=== PATIENT | male | born 1960 | race Caucasian/White ===

== ENCOUNTER 2021-02-01 20:46 | Inpatient (IN) | payer OTHER, SELFPAY ==
[2021-02-01] VITALS (8 sets, daily range): BP systolic 109–159; BP diastolic 59–117; PULSE 80–108; RESP 18–26; TEMP 36.6–39.3; O2SAT 88–98; BMI 32.3; BMI 32.5
--- NOTE | 2021-02-01 21:08 | EKG12_ITS ---
Test Reason : WEAKNESS Blood Pressure : / mmHG Vent. Rate : 098 BPM Atrial Rate : 098 BPM P-R Int : 130 ms QRS Dur : 084 ms QT Int : 378 ms P-R-T Axes : 051 034 046 degrees QTc Int : 482 ms Normal sinus rhythm Biatrial enlargement Low voltage QRS Prolonged QT Abnormal ECG Confirmed by SAURAV PEREZ, PETE ([id number]), editor at large LEATHA DESAI ([id number]) on 02/03/2021 10:13:13 AM Referred By: AURE Confirmed By:PETE MG MD
[2021-02-01 21:34] LABS: Absolute Neutrophil Count 5.1 X10^3/uL (2.0-7.7); Basophil# 0.03 X10^3/uL; Basophil% 0.5 % (0-1); Hematocrit 54.4 % (40-54); Hemoglobin 17.7 g/dL (13.0-16.5); Lymphocyte % 11.1 % (19-41); Mean Corp Hgb Conc 32.5 g/dL (32-36); Mean Corpuscular Hgb 28.7 pg (27.0-32.0); Mean Corpuscular Volume 88.2 fL (80-94); Mean Platelet Vol. 10.9 fl (6.2-12.0); Monocyte% 7.9 % (0-10); NRBC Flagged by Analyzer 0 % (0-5); Neutrophil # 5.06 X10^3/uL (2.7-7.7); Neutrophil % 80.2 % (47-70); Platelet Count 210 K/mm3 (150-450); RBC Distribution Width CV 13.4 % (11.6-14.6); RBC Distribution Width SD 43.5 fl (35.1-43.9); Red Blood Count 6.17 M/mm3 (4.6-6.2); White Blood Count 6.3 K/mm3 (4.4-11.0)
--- NOTE | 2021-02-01 21:43 | RAD_ITS ---
INDICATION: sob EXAMINATION/TECHNIQUE: X-RAY - XR Chest 1 View COMPARISON: 07/08/2013. FINDINGS: The lungs are clear. The cardiomediastinal silhouette is unremarkable. No pleural effusion or pneumothorax. No acute osseous abnormalities. RAD/Chest 1 View (Portable) IMPRESSION: No acute radiographic abnormalities. Electronically Signed: Sean Brooks MD at 22:35 EDT Tel , Service support ,
--- NOTE | 2021-02-01 21:47 | ED.DCSUM_ITS ---
History of Present Illness Chief Complaint: Shortness of Breath Informant: Patient Onset: Days Context: Gradual Onset Timing: Continuous Current Severity: Moderate Maximum Severity: Moderate Narrative: Patient is a 60-year-old male medical history significant for prior pulmonary embolus 10 years ago, who presents to the emergency department shortness of breath, diaphoresis, generalized malaise. The patient's was sick about a week ago but recovered without issue. He states on Monday, he began to have symptoms of general fatigue. He states that since that time, he feels like he cannot move because he gets so short of breath. He states he has been diaphoretic and has been having chills. He has had a scant cough. He denies any sharonda chest pain. He states when he had his pulmonary embolus, he had severe pain in his arms and sharp pain in his chest. He states this feels different. He denies any history of coronary vascular disease. Prior similar symptoms: No Recent Illness/Hospitalization: No Past Medical History - Allergies and Home Meds Allergies/Adverse Reactions: Allergies No Known Allergies Allergy (Verified 02/01/21 20:50) Primary Care Physician: Kannan Lane DO [Primary Care Provider] - Prior records reviewed: Yes Past Medical History: - - Prior PE Surgical History: noncontributory Smoking Status: Never smoker Review of Systems General: Reports: Chills, Sweats. Denies: Fever Eyes: Denies: Visual changes - bilaterally, Diplopia ENT: Denies: Rhinorrhea, Sore throat Cardiovascular: Denies: Chest pain, Palpitations Respiratory: Reports: Dyspnea. Denies: Cough, Dyspnea on exertion Gastrointestinal: Reports: Nausea. Denies: Abdominal pain, Vomiting, Diarrhea, Melena, Hematochezia Genitourinary: Denies: Dysuria, Hematuria, Frequency Musculoskeletal: Reports: Myalgias. Denies: Back pain, Extremity Pain Skin: Denies: Rash, Wounds Neurological: Denies: Headache, Weakness, Numbness Physical Exam Vital Signs/Narrative: Vital Signs Temp Pulse Resp BP Pulse Ox 02/01/21 21:35 99 24 H 109/74 92 02/01/21 21:34 97.9 F 99 26 H 159/117 H 92 02/01/21 20:47 97.9 F 106 H 18 159/117 H 98 Inital Vital Signs reviewed: Yes General: Well nourished, Well developed, No Acute Distress Head: Normocephalic, Atraumatic Eyes: Perrl, EOMI ENT: Moist mucous membranes, No rhinorrhea Neck: Supple, Nontender Cardiovascular: Regular rate, Regular rhythm, No murmurs Respiratory: No distress, CTA bilaterally, Chest nontender Abdomen: Soft, Nontender, Nondistended, Normal bowel sounds Back: Nontender, Normal Inspection Extremities: Nontender, No edema Skin: Normal color, No rash Neurological: Alert, Oriented x3, Cranial nerves II-XII grossly intact, Normal Strength, Normal Sensation Psychological: Normal affect, Normal Mood Diagnostic/Tx/Re-eval Abnormal Lab Results 02/01/21 02/01/21 02/01/21 21:22 21:22 21:22 WBC 6.3 RBC 6.17 Hgb 17.7 H Hct 54.4 H MCV 88.2 MCH 28.7 MCHC 32.5 RDW Std Deviation 43.5 RDW Coeff of Curtis 13.4 Plt Count 210 MPV 10.9 Immature Gran % (Auto) 0.300 Neut % (Auto) 80.2 H Lymph % (Auto) 11.1 L [place] % (Auto) 7.9 Eos % (Auto) 0.0 Baso % (Auto) 0.5 Absolute Neuts (auto) 5.1 Absolute Lymphs (auto) 0.70 L Nucleated RBC % 0 D-Dimer Quant (PE/DVT) 1.71 H* Sodium 133 L Potassium 3.9 Chloride 98 Carbon Dioxide 22.0 Anion Gap 13 BUN 23 H Creatinine 2.16 H Estim Creat Clear Calc 37.55 Est GFR (MDRD) Af Amer 40 L Est GFR (MDRD) Non-Af 33 L BUN/Creatinine Ratio 10.6 Glucose 131 H Calcium 8.9 Total Bilirubin 0.90 AST 52 H ALT 53 Alkaline Phosphatase 83 Troponin I 0.055 H Total Protein 8.8 H Albumin 3.8 Globulin 5.0 H Albumin/Globulin Ratio 0.8 L - Rhythm Strip Rhythm Strip: Sinus Rhythm Rate: 80 Ectopy: None - EKG Initial EKG Interpretation: Sinus Rhythm, No Acute Injury Pattern Prior: Unchanged - Medical Decision Making Patient presents with shortness of breath, malaise, fatigue, and sweats. EKG was obtained on arrival. Was sinus rhythm with mildly prolonged QT. There is no acute ischemia. Metabolic work-up was pursued. Screening labs were obtained. I also obtain chest x-ray. This was reviewed by both myself and the radiologist. There is scant bilateral patchy infiltrates consistent with Covid. The patient's Covid was positive. He does have an elevated D-dimer, indeterminate troponin, and evidence of acute kidney injury. However, with this kidney injury I cannot obtain CTA so we will cover him with therapeutic Lovenox. Patient tried to ambulate just slightly and became acutely tachypneic and hypoxic. He is started on Decadron. At this point, he will be admitted for further evaluation. Impression 1. Acute dyspnea 2. COVID-19 3. Acute kidney injury 4. Indeterminate troponin ED Disposition - Plan for ED Patient: Referrals: Kannan Lane DO [Primary Care Provider] -
[2021-02-01 21:52] LABS: ALB/GLOB Ratio 0.8 RATIO (0.9-2.4); AST(SGOT) 52 U/L (15-37); Alanine Aminotransfer ALT/SGPT 53 U/L (16-61); Albumin, Serum 3.8 g/dL (3.2-5.0); Alkaline Phosphatase 83 U/L (45-117); Anion Gap 13 (5-15); BUN 23 mg/dL (7-18); BUN/Creat Ratio 10.6 RATIO (10-20); Calcium,Total 8.9 mg/dL (8.5-10.1); Chloride 98 mmol/L (98-107); Creatinine, Serum 2.16 mg/dL (0.70-1.30); EST Glomerular Filtration Rate 33 mL/min (>60); Est Glom Filt Rate - Afr Amer 40 mL/min (>60); Estimated Creatinine Clearance 37.55 ml/min; Glucose 131 mg/dL (74-106); Potassium 3.9 mmol/L (3.5-5.1); Protein, Total 8.8 g/dL (6.4-8.2); Sodium Level 133 mmol/L (136-145)
[2021-02-01 21:56] LABS: D-Dimer Quantitative (DVT/PE) 1.71 FEU/ug/m (0.27-0.49)
[2021-02-01] MEDS: Acetaminophen 500 MG Tablet 1000 MG PO (22:37)
[2021-02-01] MEDS: Enoxaparin 100 MG/ML Syringe SC (22:37)
[2021-02-01] MEDS: dexAMETHasone 10 MG/ML Vial 6 MG IV (22:37)
--- NOTE | 2021-02-01 22:47 | HP.PCM_ITS ---
<Christina Stewart - Last Filed: 02/01/21 23:12> Problem List (1) Pneumonia due to COVID-19 virus Status: Acute (2) SB (acute kidney injury) Status: Acute (3) Elevated d-dimer Status: Acute (4) Elevated troponin Status: Acute (5) History of pulmonary embolism Status: Chronic History of Present Illness Date of Admission: 02/01/21 Chief Complaint: Shortness of breath The patient is a 60 year old M presents today with shortness of breath and cough. Patient states his was ill last week but after 4 days recovered without incident. Patient states he has been increasingly short of breath over the past couple days and and today felt that it had become much worse. Patient positive for Covid per rapid antigen. Patient reports he has not received any Covid vaccination. Patient denies significant medical history. Patient hypoxic on arrival to ER 88%, patient currently on nasal cannula at 3 L 94%. Patient febrile 102.8, received Tylenol in ER. Past Medical History Past Medical History (Chronic Problems): Chronic Problems History of pulmonary embolism (Chronic) Allergies No Known Allergies Allergy (Verified 02/01/21 20:50) Home Medications: Ambulatory Orders Medication Instructions Recorded NK 02/01/21 Surgical History: noncontributory Psychiatric History: No pertinent psych hx Lives: Spouse/ Significant Other Smoking Status: Former smoker Alcohol: None Drugs: None - *Family History Maternal History Items: No pertinent history Paternal History Items: No pertinent history Review of Systems Constitutional: Reports: Fever, Fatigue. Denies: Chills, Weight Change HEENT: Denies: Head Aches, Sinus Congestion, Sinus Drainage Cardiovascular: Denies: Chest Pain, Palpitations Respiratory: Reports: Cough, Shortness of Breath. Denies: Sputum production Gastrointestinal: Denies: Abdominal Pain, Nausea, Vomiting Genitourinary: Denies: Dysuria Musculoskeletal: Denies: Joint Pain, Joint Tenderness Skin: Denies: Rash, Wounds Neurological: Denies: Numbness, Tingling, Focal weakness Psychiatric: Denies: Anxiety, Depression, Homicidal Ideations, Suicidal Ideations Hematologic/ Lymphatic: Reports: Hx of blood clot - Patient has remote history of PE following long flight to [facility], no current anticoagulation. Denies: Easy Bruising, Easy Bleeding VTE Information - Inpt Only VTE Present on Admission: No - Questionable, elevated D-dimer unable to do CTA due to elevated creatinine VTE Mechan Device Prophylaxis: None VTE Pharm Prophylaxis ordered?: Yes - Physical Exam Vitals/I&O's: Vital Signs Temp Pulse Resp BP Pulse Ox 102.8 F H 108 H 19 H 120/69 94 02/01/21 22:37 02/01/21 22:37 02/01/21 22:37 02/01/21 22:37 02/01/21 22:42 Oxygen Flow Rate (L/min) 3 Oxygen Delivery Method Nasal Cannula Weight: 225 lb Body Mass Index (BMI) 32.3 Intake and Output for Last 24 Hours 01/30/21 01/31/21 02/01/21 23:59 23:59 23:59 Intake Total 500 / 500 Balance 500 / 500 General: Alert, Oriented x3, Cooperative HEENT: Atraumatic, PERRLA, EOMI, Normocephalic Neck: Supple, No JVD, Negative Carotid Bruits Lungs: Normal air movement, No rhonchi, No wheeze, Diminished, Short of Breath, Tachypneic Cardiovascular: Regular rate, Regular Rhythm, Normal S1, Normal S2, No murmurs Abdomen: Bowel Sounds Present, Soft, Non Tender Extremities: No edema, Capillary Refill Less than 3 Seconds, Peripheral Pulses Normal Skin: No rashes, No breakdown Musculoskeletal: No Tenderness to Palpation of Joints or Extremities Neurological: Cranial nerves II-XII grossly intact Psych/Mental Status: Normal Affect, Appropriate Microbiology Past 72 Hours 02/01/21 21:14 Mucosa - Nasopharyngeal SARS-CoV-2 Antigen (Rapid) - Final SARS-CoV-2 (COVID 19) Laboratory Results 02/01/21 21:22: WBC 6.3, RBC 6.17, Hgb 17.7 H, Hct 54.4 H, MCV 88.2, MCH 28.7, MCHC 32.5, RDW Std Deviation 43.5, RDW Coeff of Curtis 13.4, Plt Count 210, MPV 1 0.9, Immature Gran % (Auto) 0.300, Neut % (Auto) 80.2 H, Lymph % (Auto) 11.1 L, [place] % (Auto) 7.9, Eos % (Auto) 0.0, Baso % (Auto) 0.5, Absolute Neuts (auto) 5.1, Absolute Lymphs (auto) 0.70 L, Nucleated RBC % 0 02/01/21 21:22: D-Dimer Quant (PE/DVT) 1.71 H* 02/01/21 21:22: Sodium 133 L, Potassium 3.9, Chloride 98, Carbon Dioxide 22.0, Anion Gap 13, BUN 23 H, Creatinine 2.16 H, Estim Creat Clear Calc 37.55, Est GFR (MDRD) Af Amer 40 L, Est GFR (MDRD) Non-Af 33 L, BUN/Creatinine Ratio 10.6, Glucose 131 H, Calcium 8.9, Total Bilirubin 0.90, AST 52 H, ALT 53, Alkaline Phosphatase 83, Troponin I 0.055 H, Total Protein 8.8 H, Albumin 3.8, Globulin 5.0 H, Albumin/Globulin Ratio 0.8 L 02/01/21 21:22: B-Natriuretic Peptide Cancelled 02/01/21 22:43: B-Natriuretic Peptide Pending Assessment/Plan All Active Problems SB (acute kidney injury) (Acute) Pneumonia due to COVID-19 virus (Acute) Elevated d-dimer (Acute) Elevated troponin (Acute) 1. Pneumonia due to COVID-19 virus -Admit to Covid cohort unit MedSurg telemetry status. -Decadron ordered -Albuterol aerosols ordered as needed -O2 per protocol -BNP, CPK, CRP, procalcitonin, PT with INR ordered. -Trend cardiac enzymes -Covid isolation precautions ordered -Vital signs per protocol -Consult pulmonology and infectious disease -Encourage incentive spirometry 2. Acute kidney injury -BUN 23, creatinine 2.16 -Normal saline at 150ml/hr -Trend CMP daily 3. Elevated D-dimer -Unable to do CTA due to patient evaded creatinine -Will initiate patient on therapeutic dose Lovenox 4. Elevated troponin -Most likely elevated due to patient dehydration -We will trend cardiac enzymes 5. History of pulmonary embolism -Patient has history of DVT/PE in 2009 following long flight from [place] patient was anticoagulated for 6 months at that time and has had no further DVT or PE. -Patient educated as to signs and symptoms of DVT or PE and informed patient will be started on therapeutic dose of Lovenox while inpatient. DVT prophylaxis-therapeutic Lovenox This patient was seen by KRISTA Jarvis under the supervision of Dr. Ho. <Jong Ho - Last Filed: 02/02/21 05:31> History of Present Illness The patient is a 60 year old M [] Past Medical History Allergies No Known Allergies Allergy (Verified 02/01/21 20:50) - Physical Exam Vitals/I&O's: Vital Signs Temp Pulse Resp BP Pulse Ox 99.5 F H 58 L 20 H 113/59 L 96 02/01/21 23:16 02/02/21 04:00 02/01/21 23:16 02/01/21 23:16 02/01/21 23:16 Oxygen Flow Rate (L/min) 3 Oxygen Delivery Method Nasal Cannula Weight: 226 lb 10.163 oz Body Mass Index (BMI) 32.5 Intake and Output for Last 24 Hours 01/31/21 02/01/21 02/02/21 23:59 23:59 23:59 Intake Total 1000 / 1000 Output Total 0 / 0 Balance 1000 / 1000 0 / 0 Microbiology Past 72 Hours 02/01/21 21:14 Mucosa - Nasopharyngeal SARS-CoV-2 Antigen (Rapid) - Final SARS-CoV-2 (COVID 19) Laboratory Results 02/01/21 21:22: WBC 6.3, RBC 6.17, Hgb 17.7 H, Hct 54.4 H, MCV 88.2, MCH 28.7, MCHC 32.5, RDW Std Deviation 43.5, RDW Coeff of Curtis 13.4, Plt Count 210, MPV 10. 9, Immature Gran % (Auto) 0.300, Neut % (Auto) 80.2 H, Lymph % (Auto) 11.1 L, [place] % (Auto) 7.9, Eos % (Auto) 0.0, Baso % (Auto) 0.5, Absolute Neuts (auto) 5.1, Absolute Lymphs (auto) 0.70 L, Nucleated RBC % 0 02/01/21 21:22: D-Dimer Quant (PE/DVT) 1.71 H* 02/01/21 21:22: Sodium 133 L, Potassium 3.9, Chloride 98, Carbon Dioxide 22.0, Anion Gap 13, BUN 23 H, Creatinine 2.16 H, Estim Creat Clear Calc 37.55, Est GFR (MDRD) Af Amer 40 L, Est GFR (MDRD) Non-Af 33 L, BUN/Creatinine Ratio 10.6, Glucose 131 H, Calcium 8.9, Total Bilirubin 0.90, AST 52 H, ALT 53, Alkaline Phosphatase 83, Troponin I 0.055 H, Total Protein 8.8 H, Albumin 3.8, Globulin 5.0 H, Albumin/Globulin Ratio 0.8 L 02/01/21 21:22: B-Natriuretic Peptide Cancelled 02/01/21 21:22: PT 13.0, INR 1.0 02/01/21 21:22: Total Creatine Kinase 200, C-React Prot Ext Range 49.30 H 02/01/21 22:43: B-Natriuretic Peptide 67.3 02/02/21 00:33: Troponin I 0.074 H 02/02/21 04:00: WBC 3.6 L, RBC 5.50, Hgb 15.5, Hct 48.7, MCV 88.5, MCH 28.2, MCHC 31.8 L, RDW Std Deviation 44.1 H, RDW Coeff of Curtis 13.4, Plt Count 172, MPV 10.5, Immature Gran % (Auto) 1.700 H, Neut % (Auto) 79.0 H, Lymph % (Auto) 14.3 L, [place] % (Auto) 4.7, Eos % (Auto) 0.0, Baso % (Auto) 0.3, Absolute Neuts (auto) 2.9, Absolute Lymphs (auto) 0.52 L, Nucleated RBC % 0, Diff Path Review February02/02/21 04:00: Sodium Pending, Potassium Pending, Chloride Pending, Carbon Dioxide Pending, Anion Gap Pending, BUN Pending, Creatinine Pending, Est GFR (MDRD) Af Amer Pending, Est GFR (MDRD) Non-Af Pending, BUN/Creatinine Ratio Pending, Glucose Pending, Calcium Pending 02/02/21 04:00: Troponin I Pending Current Medications Acetaminophen (Acetaminophen 325 Mg Tablet) 650 mg PO Q6H PRN PRN PRN Reason: Pain Score 1-10/Temp > 100.7 F Albuterol Sulfate (Albuterol Sulfate 18 Gm Inhaler (200 Puffs)) 2 puff INHALATION Q2H PRN PRN PRN Reason: SOB/Wheezing Dexamethasone (Dexamethasone 2 Mg Tablet) 6 mg PO DAILY LUL Enoxaparin Sodium (Enoxaparin 100 Mg/Ml Syringe) 100 mg 1 mg/kg (100 mg) SC Q24 LUL Guaifenesin (Guaifenesin 10 Ml Udc (200mg/10ml)) 20 ml PO Q4H PRN PRN PRN Reason: COUGH Sodium Chloride () 1,000 mls @ 150 mls/hr IV .[id number] LUL Last Admin: 02/01/21 23:16 Dose: 150 mls/hr Documented by: Sodium Chloride () 250 mls @ 15 mls/hr IV .[id number] PRN PRN Reason: Saline Flush Sodium Chloride () 250 mls @ 15 mls/hr IV .[id number] PRN PRN Reason: Additional IVPB Infusion Melatonin (Melatonin 3 Mg Tablet) 3 mg PO QHS PRN PRN PRN Reason: INSOMNIA Miscellaneous Information (Inhaler, Assist Devices 1 Each Spacer) 1 each INHALATION PRN PRN PRN Reason: WITH ALBUTEROL INHALER Ondansetron HCl (Ondansetron 4 Mg/2 Ml Vial) 4 mg IV Q8H PRN PRN PRN Reason: NAUSEA/VOMITING Sodium Chloride (0.9% Saline Lock 10 Ml Syringe) 10 - 40 ml IV UD PRN PRN Reason: SALINE FLUSH Assessment/Plan Patient is seen and examined independently by myself and agree with above assessment and plan.
[2021-02-01] MEDS: 0.9% Normal Saline 1,000 ML 150 ML IV (23:16)
[2021-02-01 23:42] LABS: CPK Total, Creatine Kinase 200 U/L (39-308)
[2021-02-02] VITALS (13 sets, daily range): BP systolic 107–149; BP diastolic 48–75; PULSE 58–83; RESP 17–22; TEMP 35.7–38.8; O2SAT 94–98; BMI 32.5
[2021-02-02 01:23] LABS: BNP,B-Type NATRIURETIC PEPTIDE 67.3 pg/mL (0-100)
[2021-02-02 04:11] LABS: Absolute Lymphocyte Count 0.52 X10^3/uL (0.83-4.51); Absolute Neutrophil Count 2.9 X10^3/uL (2.0-7.7); Basophil# 0.01 X10^3/uL; Basophil% 0.3 % (0-1); Differential Indicated SCAN CRITERIA MET; Hematocrit 48.7 % (40-54); Hemoglobin 15.5 g/dL (13.0-16.5); Lymphocyte # 0.52 X10^3/ul (0.83-4.51); Lymphocyte % 14.3 % (19-41); Mean Corp Hgb Conc 31.8 g/dL (32-36); Mean Corpuscular Hgb 28.2 pg (27.0-32.0); Mean Corpuscular Volume 88.5 fL (80-94); Mean Platelet Vol. 10.5 fl (6.2-12.0); Monocyte# 0.17 X10^3/uL; Monocyte% 4.7 % (0-10); NRBC Flagged by Analyzer 0 % (0-5); Neutrophil # 2.87 X10^3/uL (2.7-7.7); POSITIVE DIFFERENTIAL YES; Platelet Count 172 K/mm3 (150-450); RBC Distribution Width CV 13.4 % (11.6-14.6); RBC Distribution Width SD 44.1 fl (35.1-43.9); White Blood Count 3.6 K/mm3 (4.4-11.0)
--- NOTE | 2021-02-02 05:43 | CON.PCM_ITS ---
Reason for Consult Date of Consultation: 02/02/21 Reason for Consultation: Acute hypoxemic respiratory insufficiency secondary to COVID-19 pneumonia History of Present Illness: The patient is a 60-year-old male, with a history as outlined below, who presented to the emergency department on February 01 with complaints of shortness of breath and generalized malaise. The patient's symptoms initially began 4 days ago. The patient has not yet received his coronavirus vaccination. He denies any recent sick contact exposure. He denies any loss of taste or smell. He does not have a baseline supplemental oxygen requirement. On presentation to the emergency department, the patient was noted to be afebrile and hemodynamically stable. Laboratory evaluation revealed a normal white blood cell count. D-dimer was elevated at 1.7. Chemistry profile was notable for a sodium of 133 and creatinine of 2.16. Troponin was increased to 0.055. BNP was within normal limits. Chest x-ray showed no acute cardiopulmonary process. The patient was initially placed on supplemental IV fluids and Decadron. The patient was not initially started on remdesivir. Lovenox was ordered. The patient was subsequently admitted to the medical intensive care unit for further management. Past Medical History Past Medical History (Chronic Problems): Chronic Problems History of pulmonary embolism (Chronic) Allergies No Known Allergies Allergy (Verified 02/01/21 20:50) Home Medications: Ambulatory Orders Medication Instructions Recorded NK 02/01/21 Surgical History: noncontributory Psychiatric History: No pertinent psych hx Lives: Spouse/ Significant Other Smoking Status: Former smoker Alcohol: None Drugs: None - *Family History Maternal History Items: No pertinent history Paternal History Items: No pertinent history Review of Systems Constitutional: Reports: Malaise, Weakness, Fatigue Eyes: Denies: Blurred vision, Double vision HEENT: Denies: Head Aches, Sinus Congestion, Sinus Drainage Cardiovascular: Denies: Chest Pain, Palpitations Respiratory: Reports: Cough, Shortness of Breath Gastrointestinal: Denies: Abdominal Pain, Nausea, Vomiting Genitourinary: Denies: Dysuria Musculoskeletal: Denies: Joint Pain, Joint Tenderness Skin: Denies: Rash, Wounds Neurological: Denies: Numbness, Tingling, Focal weakness Psychiatric: Denies: Anxiety, Depression, Homicidal Ideations, Suicidal Ideations Hematologic/ Lymphatic: Reports: Hx of blood clot Patient Problems: Active and Suspected Problems SB (acute kidney injury) (Acute) Pneumonia due to COVID-19 virus (Acute) Elevated d-dimer (Acute) Elevated troponin (Acute) Objective: The patient's most recent lab work, culture data and imaging studies have all been personally reviewed. Rapid coronavirus antigen testing was positive on February 01. - Physical Exam Vitals/I&O's: Vital Signs Temp Pulse Resp BP Pulse Ox 99.5 F H 58 L 20 H 113/59 L 96 02/01/21 23:16 02/02/21 04:00 02/01/21 23:16 02/01/21 23:16 02/01/21 23:16 Oxygen Flow Rate (L/min) 3 Oxygen Delivery Method Nasal Cannula Weight: 226 lb 10.163 oz Body Mass Index (BMI) 32.5 Intake and Output for Last 24 Hours 01/31/21 02/01/21 02/02/21 23:59 23:59 23:59 Intake Total 1000 / 1000 Output Total 0 / 0 Balance 1000 / 1000 0 / 0 General: Alert, Cooperative, No apparent distress HEENT: Atraumatic, PERRLA, Normocephalic Oral: No Gingival or Mucosal Lesions/ Ulcerations Neck: Supple, No Nodes, Trachea Midline Lungs: No rhonchi, No wheeze, No rales, Diminished Cardiovascular: Regular rate, Regular Rhythm Abdomen: Bowel Sounds Present, Soft, Non Tender Extremities: No clubbing, No cyanosis, No edema Skin: No breakdown Musculoskeletal: No Tenderness to Palpation of Joints or Extremities Lymphatic: No Cervical, Supraclavicular, or Inguinal Adenopathy Neurological: Cranial nerves II-XII grossly intact, Neuro grossly intact Psych/Mental Status: Alert and oriented to time, place, person, mood and affect Labs (Last 48 Hours) 02/01/21 02/01/21 02/01/21 21:22 21:22 21:22 WBC 6.3 RBC 6.17 Hgb 17.7 H Hct 54.4 H MCV 88.2 MCH 28.7 MCHC 32.5 RDW Std Deviation 43.5 RDW Coeff of Curtis 13.4 Plt Count 210 MPV 10.9 Immature Gran % (Auto) 0.300 Neut % (Auto) 80.2 H Lymph % (Auto) 11.1 L Davison % (Auto) 7.9 Eos % (Auto) 0.0 Baso % (Auto) 0.5 Absolute Neuts (auto) 5.1 Absolute Lymphs (auto) 0.70 L Nucleated RBC % 0 Diff Path Review PT INR D-Dimer Quant (PE/DVT) 1.71 H* Sodium 133 L Potassium 3.9 Chloride 98 Carbon Dioxide 22.0 Anion Gap 13 BUN 23 H Creatinine 2.16 H Estim Creat Clear Calc 37.55 Est GFR (MDRD) Af Amer 40 L Est GFR (MDRD) Non-Af 33 L BUN/Creatinine Ratio 10.6 Glucose 131 H Calcium 8.9 Total Bilirubin 0.90 AST 52 H ALT 53 Alkaline Phosphatase 83 Total Creatine Kinase Troponin I 0.055 H C-React Prot Ext Range B-Natriuretic Peptide Total Protein 8.8 H Albumin 3.8 Globulin 5.0 H Albumin/Globulin Ratio 0.8 L 02/01/21 02/01/21 02/01/21 21:22 21:22 21:22 WBC RBC Hgb Hct MCV MCH MCHC RDW Std Deviation RDW Coeff of Curtis Plt Count MPV Immature Gran % (Auto) Neut % (Auto) Lymph % (Auto) Davison % (Auto) Eos % (Auto) Baso % (Auto) Absolute Neuts (auto) Absolute Lymphs (auto) Nucleated RBC % Diff Path Review PT 13.0 INR 1.0 D-Dimer Quant (PE/DVT) Sodium Potassium Chloride Carbon Dioxide Anion Gap BUN Creatinine Estim Creat Clear Calc Est GFR (MDRD) Af Amer Est GFR (MDRD) Non-Af BUN/Creatinine Ratio Glucose Calcium Total Bilirubin AST ALT Alkaline Phosphatase Total Creatine Kinase 200 Troponin I C-React Prot Ext Range 49.30 H B-Natriuretic Peptide Cancelled Total Protein Albumin Globulin Albumin/Globulin Ratio 02/01/21 02/02/21 02/02/21 22:43 00:33 04:00 WBC 3.6 L RBC 5.50 Hgb 15.5 Hct 48.7 MCV 88.5 MCH 28.2 MCHC 31.8 L RDW Std Deviation 44.1 H RDW Coeff of Curtis 13.4 Plt Count 172 MPV 10.5 Immature Gran % (Auto) 1.700 H Neut % (Auto) 79.0 H Lymph % (Auto) 14.3 L Davison % (Auto) 4.7 Eos % (Auto) 0.0 Baso % (Auto) 0.3 Absolute Neuts (auto) 2.9 Absolute Lymphs (auto) 0.52 L Nucleated RBC % 0 Diff Path Review May foll PT INR D-Dimer Quant (PE/DVT) Sodium Potassium Chloride Carbon Dioxide Anion Gap BUN Creatinine Estim Creat Clear Calc Est GFR (MDRD) Af Amer Est GFR (MDRD) Non-Af BUN/Creatinine Ratio Glucose Calcium Total Bilirubin AST ALT Alkaline Phosphatase Total Creatine Kinase Troponin I 0.074 H C-React Prot Ext Range B-Natriuretic Peptide 67.3 Total Protein Albumin Globulin Albumin/Globulin Ratio 02/02/21 02/02/21 04:00 04:00 WBC RBC Hgb Hct MCV MCH MCHC RDW Std Deviation RDW Coeff of Curtis Plt Count MPV Immature Gran % (Auto) Neut % (Auto) Lymph % (Auto) Davison % (Auto) Eos % (Auto) Baso % (Auto) Absolute Neuts (auto) Absolute Lymphs (auto) Nucleated RBC % Diff Path Review PT INR D-Dimer Quant (PE/DVT) Sodium Pending Potassium Pending Chloride Pending Carbon Dioxide Pending Anion Gap Pending BUN Pending Creatinine Pending Estim Creat Clear Calc Est GFR (MDRD) Af Amer Pending Est GFR (MDRD) Non-Af Pending BUN/Creatinine Ratio Pending Glucose Pending Calcium Pending Total Bilirubin AST ALT Alkaline Phosphatase Total Creatine Kinase Troponin I Pending C-React Prot Ext Range B-Natriuretic Peptide Total Protein Albumin Globulin Albumin/Globulin Ratio Microbiology 02/01/21 21:14 Mucosa - Nasopharyngeal SARS-CoV-2 Antigen (Rapid) - Final SARS-CoV-2 (COVID 19) Clinical Impression(s) from Imaging Studies Chest X-Ray 02/01/21 21:43 IMPRESSION: No acute radiographic abnormalities. Electronically Signed: Sean Brooks MD at 22:35 EDT Tel , Service support , Current Medications Acetaminophen (Acetaminophen 325 Mg Tablet) 650 mg PO Q6H PRN PRN PRN Reason: Pain Score 1-10/Temp > 100.7 F Albuterol Sulfate (Albuterol Sulfate 18 Gm Inhaler (200 Puffs)) 2 puff INHALATION Q2H PRN PRN PRN Reason: SOB/Wheezing Dexamethasone (Dexamethasone 2 Mg Tablet) 6 mg PO DAILY [facility] Enoxaparin Sodium (Enoxaparin 100 Mg/Ml Syringe) 100 mg 1 mg/kg (100 mg) SC Q24 [facility] Guaifenesin (Guaifenesin 10 Ml Udc (200mg/10ml)) 20 ml PO Q4H PRN PRN PRN Reason: COUGH Sodium Chloride () 1,000 mls @ 150 mls/hr IV .Q6H40M [facility] Last Admin: 02/01/21 23:16 Dose: 150 mls/hr Documented by: Sodium Chloride () 250 mls @ 15 mls/hr IV .[id number] PRN PRN Reason: Saline Flush Sodium Chloride () 250 mls @ 15 mls/hr IV .[id number] PRN PRN Reason: Additional IVPB Infusion Melatonin (Melatonin 3 Mg Tablet) 3 mg PO QHS PRN PRN PRN Reason: INSOMNIA Miscellaneous Information (Inhaler, Assist Devices 1 Each Spacer) 1 each IN HALATION PRN PRN PRN Reason: WITH ALBUTEROL INHALER Ondansetron HCl (Ondansetron 4 Mg/2 Ml Vial) 4 mg IV Q8H PRN PRN PRN Reason: NAUSEA/VOMITING Sodium Chloride (0.9% Saline Lock 10 Ml Syringe) 10 - 40 ml IV UD PRN PRN Reason: SALINE FLUSH Assessment/Plan Active and Suspected Problems SB (acute kidney injury) (Acute) Pneumonia due to COVID-19 virus (Acute) Elevated d-dimer (Acute) Elevated troponin (Acute) RECOMMENDATIONS: 1. Wean supplemental oxygen to maintain saturations at or above 90%. 2. Continue supplemental IV fluid hydration. 3. Change Lovenox to 1 mg per kilogram twice daily, for therapeutic anticoagulation purposes. 4. Start remdesivir. Monitor liver and renal function accordingly. 5. Continue Decadron with plans to complete a 10-day treatment course. IMPRESSIONS: 1. Acute hypoxemic respiratory insufficiency secondary to COVID-19 pneumonia The patient presented to the hospital with approximately 4 days of Covid-like symptoms. He does not have a baseline supplemental oxygen requirement. The patient has been started on Decadron with plans to complete a 10-day treatment course. In addition, he will be initiated on remdesivir, with plans to monitor liver and renal function accordingly. We will also plan to check procalcitonin level. The patient did have an elevated D-dimer but was unable to undergo a CTA chest due to his underlying kidney dysfunction. Once improved, will need to consider CTA chest. 2. Acute kidney injury Likely prerenal in etiology. Creatinine has improved with volume expansion. Plan to continue supplemental IV fluid hydration. Continue to monitor urine output. No current indication for renal replacement therapy. 3. Elevated D-dimer The patient does have an elevated D-dimer level but was unable to undergo a CTA chest due to his underlying renal insufficiency. Although the patient was started on Lovenox, the dose ordered was not therapeutic. Therefore, I would recommend that the patient be initiated on 1 mg/kg twice daily, pending improvement in renal function. If creatinine continues to improve, CTA chest will be obtained. 4. Troponin elevation Likely secondary to demand ischemia in the setting of #1. This note was generated with [employer] dictation software. It may contain incorrect words, spelling, and punctuation that were not noted in checking the note before signing. Inpatient E&M: 22995 Init Hosp L3
[2021-02-02 05:49] LABS: Anion Gap 11 (5-15); BUN 23 mg/dL (7-18); BUN/Creat Ratio 15.5 RATIO (10-20); Calcium,Total 7.9 mg/dL (8.5-10.1); Chloride 106 mmol/L (98-107); Creatinine, Serum 1.48 mg/dL (0.70-1.30); EST Glomerular Filtration Rate 51 mL/min (>60); Est Glom Filt Rate - Afr Amer 62 mL/min (>60); Glucose 137 mg/dL (74-106); Potassium 4.3 mmol/L (3.5-5.1); Sodium Level 137 mmol/L (136-145)
[2021-02-02] MEDS: 0.9% Normal Saline 1,000 ML 150 ML IV ×3 (06:00→23:12)
[2021-02-02] MEDS: Enoxaparin 100 MG/ML Syringe SC ×2 (08:28→19:39)
[2021-02-02] MEDS: dexAMETHasone 2 MG TABLET 6 MG PO (08:29)
[2021-02-02 08:53] LABS: Alkaline Phosphatase 66 U/L (45-117)
--- NOTE | 2021-02-02 10:53 | PCM.NTREPORT ---
Nutrition Therapy Report - History Nutrition Services has been consulted to:: Manage nutrient details of diet order Current diet / nutrition support order:: regular - Anthropometric Measurements Height:: 5 ft 10 in Weight:: 102.8 kg Body Mass Index (BMI):: 32.5 - Relevant Labs Relevant Labs:: WBC 3.6 K/mm3 (4.4-11.0) L 02/02/21 04:00 Hgb 17.7 g/dL (13.0-16.5) H 02/01/21 21:22 Hct 54.4 % (40-54) H 02/01/21 21:22 MCHC 31.8 g/dL (32-36) L 02/02/21 04:00 RDW Std Deviation 44.1 fl (35.1-43.9) H 02/02/21 04:00 Immature Gran % (Auto) 1.700 % (0.0-0.9) H 02/02/21 04:00 Neut % (Auto) 79.0 % (47-70) H 02/02/21 04:00 Lymph % (Auto) 14.3 % (19-41) L 02/02/21 04:00 Absolute Lymphs (auto) 0.52 X10^3/uL (0.83-4.51) L 02/02/21 04:00 D-Dimer Quant (PE/DVT) 1.71 FEU/ug/m (0.27-0.49) H* 02/01/21 21:22 Sodium 133 mmol/L (136-145) L 02/01/21 21:22 Carbon Dioxide 20.0 mmol/L (21.0-32.0) L 02/02/21 04:00 BUN 23 mg/dL (7-18) H 02/02/21 04:00 Creatinine 1.48 mg/dL (0.70-1.30) H 02/02/21 04:00 Est GFR (MDRD) Af Amer 40 mL/min (>60) L 02/01/21 21:22 Est GFR (MDRD) Non-Af 51 mL/min (>60) L 02/02/21 04:00 Glucose 137 mg/dL (74-106) H 02/02/21 04:00 Calcium 7.9 mg/dL (8.5-10.1) L 02/02/21 04:00 AST 52 U/L (15-37) H 02/01/21 21:22 Troponin I 0.052 ng/mL (<0.045) H 02/02/21 04:00 C-React Prot Ext Range 49.30 mg/L (0.0-3.0) H 02/01/21 21:22 Total Protein 8.8 g/dL (6.4-8.2) H 02/01/21 21:22 Globulin 5.0 g/dL (2.2-4.2) H 02/01/21 21:22 Albumin/Globulin Ratio 0.8 RATIO (0.9-2.4) L 02/01/21 21:22 - Assessment Food / Nutrition-Related History:: Currently in isolation d/t COVID-19. Spoke w/ pt via room phone. Pt reports poor appetite w/ little PO intake x1 week [employer]. States appetite/intake has not improved since admission. UBW 235# w/ unintentional wt loss during acute illness. CBW 226.6#-8.4#/4% x 1 week is significant for malnutrition. - Nutrition Diagnosis Problem / Etiology / Signs & Symptoms (PES):: severe, acute malnutrition r/t inadequate energy intake w/ COVID-19 illness as evidenced by estimated PO intake meeting <50% of pt's nutritional needs x 1 week, unintentional wt loss of 8.4#/4% x 1 week [employer]ITY [employer]GER Evidence of Malnutrition Exists:: Yes Severe PCM:: Acute Illness - Nutrition Intervention Nutrition Prescription:: [id number] calories/day (1.3xRMR). 75-85 g protein/day (0.8g/kg). 2570mL fluid/day (25mL/kg) - Food / Nutrient Delivery Interventions Summary of nutrition intervention:: Discussed need for adequate nutrition during illness to prevent additional wt loss. Pt is agreeable to trying Ensure Enlive w/ meals. Will provide. Nutrition support ordered as / adjusted to:: continue regular diet; will add 120mL ensure enlive TID w/ meals Nutrition education provided?: Yes - MNT Monitoring Further MNT monitoring and evaluation required?: Yes MNT Follow-up in:: 3-5 days
--- NOTE | 2021-02-02 11:10 | CASEMGMT ---
RN AHMET called patient in room for initial transition planning/care coordination assessment. RN AHMET introduced self and role at [facility]. Patient is alert and oriented. Patient willing to participate in assessment and is able to answer all questions appropriately. Care providers, pharmacy, and demographics verified. Patient wishes to discharge home, denies need for home health at this time. Patient states he has no further needs or concerns at this time. CM to follow for discharge planning needs that may arise. PCP: Domingo Specialists: none Preferred Pharmacy: [facility], prefers [facility] retail at discharge. Insurance: [employer] Prescription Benefit: yes Living Will/HPOA: none LNOK: Living Arrangements: Patient lives with in a 2 story home. Patient states he is independent and able to ambulate stairs. Patient states has been sick but was not tested for Covid. is isolating at home. Patient states they would order groceries online. Transportation: self/ DME/HHC: Patient denies DME or previous HHC. Will monitor for need for home oxygen at discharge. Patient was provided a list of DME providers consistent with the patient?s preferred geographic region, medical needs, and insurance network. Patient to review list. Disposition Plan: Patient to discharge home with family support and follow-up plans in place. Hue CORREA, RN, CM
[2021-02-02 11:45] LABS: Procalcitonin 0.49 ng/mL (0.00-0.09)
--- NOTE | 2021-02-02 14:24 | PN_ITS ---
Patient Problems: Active and Suspected Problems SB (acute kidney injury) (Acute) Pneumonia due to COVID-19 virus (Acute) Elevated d-dimer (Acute) Elevated troponin (Acute) Subjective: Patient was seen and examined in the ICU today, he has been on room air at rest but feel he would probably require oxygen on ambulation. Patient denies any fevers or chills - Physical Exam Vitals/I&O's: Vital Signs Temp Pulse Resp BP Pulse Ox 98.5 F 68 18 134/65 H 95 02/02/21 12:17 02/02/21 12:17 02/02/21 12:17 02/02/21 12:17 02/02/21 12:17 Oxygen Flow Rate (L/min) 2 Oxygen Delivery Method Room Air Weight: 102.8 kg Body Mass Index (BMI) 32.5 Intake and Output for Last 24 Hours 01/31/21 02/01/21 02/02/21 23:59 23:59 23:59 Intake Total 1000 / 1000 2347.5 / 2347.5 Output Total 0 / 0 Balance 1000 / 1000 2347.5 / 2347.5 General: Alert, Oriented x3, Cooperative, No apparent distress, Well developed, Well nourished HEENT: Atraumatic, PERRLA, EOMI, Normocephalic Oral: Moist Mucosa Neck: Supple, No JVD, Trachea Midline, Thyroid Normal Size and Texture Lungs: Clear to auscultation, Normal air movement, No rhonchi, No wheeze, No rales Cardiovascular: Regular rate, Regular Rhythm, Normal S1, Normal S2, No murmurs, PMI Normal, No rub noted, No Gallop Abdomen: Bowel Sounds Present, Soft, Non Tender, Non-Distended Extremities: No clubbing, No cyanosis, No edema, Capillary Refill Less than 3 Seconds Skin: No rashes, No breakdown Musculoskeletal: No Tenderness to Palpation of Joints or Extremities Neurological: Cranial nerves II-XII grossly intact, Neuro grossly intact, Sensory exam intact to light touch and pain Psych/Mental Status: Normal Affect, Appropriate, Alert and oriented to time, place, person, mood and affect Microbiology Past 72 Hours 02/01/21 21:14 Mucosa - Nasopharyngeal SARS-CoV-2 Antigen (Rapid) - Final SARS-CoV-2 (COVID 19) Laboratory Results 02/01/21 21:22: WBC 6.3, RBC 6.17, Hgb 17.7 H, Hct 54.4 H, MCV 88.2, MCH 28.7, MCHC 32.5, RDW Std Deviation 43.5, RDW Coeff of Curtis 13.4, Plt Count 210, MPV 10.9, Immature Gran % (Auto) 0.300, Neut % (Auto) 80.2 H, Lymph % (Auto) 11.1 L, Bath % (Auto) 7.9, Eos % (Auto) 0.0, Baso % (Auto) 0.5, Absolute Neuts (auto) 5.1, Absolute Lymphs (auto) 0.70 L, Nucleated RBC % 0 02/01/21 21:22: D-Dimer Quant (PE/DVT) 1.71 H* 02/01/21 21:22: Sodium 133 L, Potassium 3.9, Chloride 98, Carbon Dioxide 22.0, Anion Gap 13, BUN 23 H, Creatinine 2.16 H, Estim Creat Clear Calc 37.55, Est GFR (MDRD) Af Amer 40 L, Est GFR (MDRD) Non-Af 33 L, BUN/Creatinine Ratio 10.6, Glucose 131 H, Calcium 8.9, Total Bilirubin 0.90, AST 52 H, ALT 53, Alkaline Phosphatase 83, Troponin I 0.055 H, Total Protein 8.8 H, Albumin 3.8, Globulin 5.0 H, Albumin/Globulin Ratio 0.8 L 02/01/21 21:22: B-Natriuretic Peptide Cancelled 02/01/21 21:22: PT 13.0, INR 1.0 02/01/21 21:22: Total Creatine Kinase 200, C-React Prot Ext Range 49.30 H 02/01/21 22:43: B-Natriuretic Peptide 67.3 02/02/21 00:33: Troponin I 0.074 H 02/02/21 04:00: WBC 3.6 L, RBC 5.50, Hgb 15.5, Hct 48.7, MCV 88.5, MCH 28.2, MCHC 31.8 L, RDW Std Deviation 44.1 H, RDW Coeff of Curtis 13.4, Plt Count 172, MPV 10.5, Immature Gran % (Auto) 1.700 H, Neut % (Auto) 79.0 H, Lymph % (Auto) 14.3 L, Bath % (Auto) 4.7, Eos % (Auto) 0.0, Baso % (Auto) 0.3, Absolute Neuts (auto) 2.9, Absolute Lymphs (auto) 0.52 L, Nucleated RBC % 0, Diff Path Review February02/02/21 04:00: Sodium 137, Potassium 4.3, Chloride 106, Carbon Dioxide 20.0 L, Anion Gap 11, BUN 23 H, Creatinine 1.48 H, Estim Creat Clear Calc 54.80, Est GFR (MDRD) Af Amer 62, Est GFR (MDRD) Non-Af 51 L, BUN/Creatinine Ratio 15.5, Glucose 137 H, Calcium 7.9 L 02/02/21 04:00: Troponin I 0.052 H 02/02/21 04:00: Alkaline Phosphatase 66 02/02/21 10:00: Procalcitonin 0.49 H Current Medications Acetaminophen (Acetaminophen 325 Mg Tablet) 650 mg PO Q6H PRN PRN PRN Reason: Pain Score 1-10/Temp > 100.7 F Albuterol Sulfate (Albuterol Sulfate 18 Gm Inhaler (200 Puffs)) 2 puff INHALATION Q2H PRN PRN PRN Reason: SOB/Wheezing Dexamethasone (Dexamethasone 2 Mg Tablet) 6 mg PO DAILY [facility] Last Admin: 02/02/21 08:29 Dose: 6 mg Documented by: Enoxaparin Sodium (Enoxaparin 100 Mg/Ml Syringe) 100 mg 1 mg/kg (100 mg) SC Q12 [facility] Last Admin: 02/02/21 08:28 Dose: 100 mg Documented by: Guaifenesin (Guaifenesin 10 Ml Udc (200mg/10ml)) 20 ml PO Q4H PRN PRN PRN Reason: COUGH Sodium Chloride () 1,000 mls @ 150 mls/hr IV .Q6H40M [facility] Last Infusion: 02/02/21 12:34 Dose: 150 mls/hr Documented by: Sodium Chloride () 250 mls @ 15 mls/hr IV .[id number] PRN PRN Reason: Saline Flush Sodium Chloride () 250 mls @ 15 mls/hr IV .[id number] PRN PRN Reason: Additional IVPB Infusion Remdesivir 100 mg/ Sodium (Chloride) 250 mls @ 125 mls/hr IV DAILY [facility]; Protocol Stop: 02/06/21 11:59 Melatonin (Melatonin 3 Mg Tablet) 3 mg PO QHS PRN PRN PRN Reason: INSOMNIA Miscellaneous Information (Inhaler, Assist Devices 1 Each Spacer) 1 each INHALATION PRN PRN PRN Reason: WITH ALBUTEROL INHALER Ondansetron HCl (Ondansetron 4 Mg/2 Ml Vial) 4 mg IV Q8H PRN PRN PRN Reason: NAUSEA/VOMITING Sodium Chloride (0.9% Saline Lock 10 Ml Syringe) 10 - 40 ml IV UD PRN PRN Reason: SALINE FLUSH Medical Necessity - Tobacco Use Smoking Status: Former smoker Assessment/Plan All Active Problems SB (acute kidney injury) (Acute) Pneumonia due to COVID-19 virus (Acute) Elevated d-dimer (Acute) Elevated troponin (Acute) #1 COVID-19 pneumonia-continue remdesivir and dexamethasone, patient is being seen by infectious diseases and pulmonary medicine #2 hypoxia secondary to COVID-19 pneumonia-again, this appears to be resolving, continue to monitor pulse ox #3 acute kidney injury-this is improving with administration of fluids #4 elevated [id number] is on full anticoagulation at this time #4 intermediate elevated troponin-I do not feel this is significant in this setting Inpatient E&M: 47759 Subs Hosp L2
--- NOTE | 2021-02-02 16:02 | CON.PCM_ITS ---
Problem List (1) Pneumonia due to COVID-19 virus Status: Acute Reason for Consult: covid Consulted by: Dr. Monk History of Present Illness: The patient is a 60 year old M presented with sx since 01/30, c/o fatigue, dyspnea, cough, nausea. No sick contacts, has not been vaccinated. was sick first, has not been tested, doing ok. He came to ED, covid (+), admitted on dex and remdesivir. Full ROS performed and neg except as noted above. - Medical History Past Medical History (Chronic Problems): Chronic Problems History of pulmonary embolism (Chronic) Allergies/Adverse Reactions: Allergies No Known Allergies Allergy (Verified 02/01/21 20:50) Home Medications: Ambulatory Orders Medication Instructions Recorded NK 02/01/21 - Social History Tobacco Use: non-smoker Vital Signs Temp Pulse Resp BP Pulse Ox 98.5 F 68 18 134/65 H 96 02/02/21 12:17 02/02/21 12:17 02/02/21 12:17 02/02/21 12:17 02/02/21 14:43 Oxygen Flow Rate (L/min) 2 Oxygen Delivery Method Room Air Weight: 102.8 kg Body Mass Index (BMI) 32.5 Microbiology Past 72 Hours 02/01/21 21:14 SARS-CoV-2 Antigen (Rapid) - Final Mucosa - Nasopharyngeal SARS-CoV-2 (COVID 19) Laboratory Tests Past 24 Hrs 02/01/21 02/01/21 02/01/21 21:22 21:22 21:22 WBC 6.3 RBC 6.17 Hgb 17.7 H Hct 54.4 H MCV 88.2 MCH 28.7 MCHC 32.5 RDW Std Deviation 43.5 RDW Coeff of Curtis 13.4 Plt Count 210 MPV 10.9 Immature Gran % (Auto) 0.300 Neut % (Auto) 80.2 H Lymph % (Auto) 11.1 L [place] % (Auto) 7.9 Eos % (Auto) 0.0 Baso % (Auto) 0.5 Absolute Neuts (auto) 5.1 Absolute Lymphs (auto) 0.70 L Nucleated RBC % 0 Diff Path Review PT INR D-Dimer Quant (PE/DVT) 1.71 H* Sodium 133 L Potassium 3.9 Chloride 98 Carbon Dioxide 22.0 Anion Gap 13 BUN 23 H Creatinine 2.16 H Estim Creat Clear Calc 37.55 Est GFR (MDRD) Af Amer 40 L Est GFR (MDRD) Non-Af 33 L BUN/Creatinine Ratio 10.6 Glucose 131 H Calcium 8.9 Total Bilirubin 0.90 AST 52 H ALT 53 Alkaline Phosphatase 83 Total Creatine Kinase Troponin I 0.055 H C-React Prot Ext Range B-Natriuretic Peptide Total Protein 8.8 H Albumin 3.8 Globulin 5.0 H Albumin/Globulin Ratio 0.8 L Procalcitonin 02/01/21 02/01/21 02/01/21 21:22 21:22 21:22 WBC RBC Hgb Hct MCV MCH MCHC RDW Std Deviation RDW Coeff of Curtis Plt Count MPV Immature Gran % (Auto) Neut % (Auto) Lymph % (Auto) [place] % (Auto) Eos % (Auto) Baso % (Auto) Absolute Neuts (auto) Absolute Lymphs (auto) Nucleated RBC % Diff Path Review PT 13.0 INR 1.0 D-Dimer Quant (PE/DVT) Sodium Potassium Chloride Carbon Dioxide Anion Gap BUN Creatinine Estim Creat Clear Calc Est GFR (MDRD) Af Amer Est GFR (MDRD) Non-Af BUN/Creatinine Ratio Glucose Calcium Total Bilirubin AST ALT Alkaline Phosphatase Total Creatine Kinase 200 Troponin I C-React Prot Ext Range 49.30 H B-Natriuretic Peptide Cancelled Total Protein Albumin Globulin Albumin/Globulin Ratio Procalcitonin 02/01/21 02/02/21 02/02/21 22:43 00:33 04:00 WBC 3.6 L RBC 5.50 Hgb 15.5 Hct 48.7 MCV 88.5 MCH 28.2 MCHC 31.8 L RDW Std Deviation 44.1 H RDW Coeff of Curtis 13.4 Plt Count 172 MPV 10.5 Immature Gran % (Auto) 1.700 H Neut % (Auto) 79.0 H Lymph % (Auto) 14.3 L [place] % (Auto) 4.7 Eos % (Auto) 0.0 Baso % (Auto) 0.3 Absolute Neuts (auto) 2.9 Absolute Lymphs (auto) 0.52 L Nucleated RBC % 0 Diff Path Review May foll PT INR D-Dimer Quant (PE/DVT) Sodium Potassium Chloride Carbon Dioxide Anion Gap BUN Creatinine Estim Creat Clear Calc Est GFR (MDRD) Af Amer Est GFR (MDRD) Non-Af BUN/Creatinine Ratio Glucose Calcium Total Bilirubin AST ALT Alkaline Phosphatase Total Creatine Kinase Troponin I 0.074 H C-React Prot Ext Range B-Natriuretic Peptide 67.3 Total Protein Albumin Globulin Albumin/Globulin Ratio Procalcitonin 02/02/21 02/02/21 02/02/21 04:00 04:00 04:00 WBC RBC Hgb Hct MCV MCH MCHC RDW Std Deviation RDW Coeff of Curtis Plt Count MPV Immature Gran % (Auto) Neut % (Auto) Lymph % (Auto) [place] % (Auto) Eos % (Auto) Baso % (Auto) Absolute Neuts (auto) Absolute Lymphs (auto) Nucleated RBC % Diff Path Review PT INR D-Dimer Quant (PE/DVT) Sodium 137 Potassium 4.3 Chloride 106 Carbon Dioxide 20.0 L Anion Gap 11 BUN 23 H Creatinine 1.48 H Estim Creat Clear Calc 54.80 Est GFR (MDRD) Af Amer 62 Est GFR (MDRD) Non-Af 51 L BUN/Creatinine Ratio 15.5 Glucose 137 H Calcium 7.9 L Total Bilirubin AST ALT Alkaline Phosphatase 66 Total Creatine Kinase Troponin I 0.052 H C-React Prot Ext Range B-Natriuretic Peptide Total Protein Albumin Globulin Albumin/Globulin Ratio Procalcitonin 02/02/21 10:00 WBC RBC Hgb Hct MCV MCH MCHC RDW Std Deviation RDW Coeff of Curtis Plt Count MPV Immature Gran % (Auto) Neut % (Auto) Lymph % (Auto) [place] % (Auto) Eos % (Auto) Baso % (Auto) Absolute Neuts (auto) Absolute Lymphs (auto) Nucleated RBC % Diff Path Review PT INR D-Dimer Quant (PE/DVT) Sodium Potassium Chloride Carbon Dioxide Anion Gap BUN Creatinine Estim Creat Clear Calc Est GFR (MDRD) Af Amer Est GFR (MDRD) Non-Af BUN/Creatinine Ratio Glucose Calcium Total Bilirubin AST ALT Alkaline Phosphatase Total Creatine Kinase Troponin I C-React Prot Ext Range B-Natriuretic Peptide Total Protein Albumin Globulin Albumin/Globulin Ratio Procalcitonin 0.49 H - Other Studies Radiology: [] reviewed Other Studies: [] Route of nutrition/ use of supplements: [] Nutritional Intake: [] IV Site: [] Briceño Catheter: [] - Physical Exam General: Alert, Oriented x3, Cooperative, No apparent distress HEENT: Atraumatic, PERRLA, EOMI Neck: Supple, No Nodes Lungs: Clear to auscultation, Diminished Cardiovascular: Regular rate, Regular Rhythm Abdomen: Soft, Non Tender, Non-Distended Extremities: No edema Skin: No rashes IV Site: Peripheral, without redness Musculoskeletal: No Tenderness to Palpation of Joints or Extremities Neurological: Cranial nerves II-XII grossly intact - Assessment/Plan Antibiotics: [] Assessment/Plan: [] Active and Suspected Problems SB (acute kidney injury) (Acute) Pneumonia due to COVID-19 virus (Acute) Elevated d-dimer (Acute) Elevated troponin (Acute) covid with hypoxia - sx started 01/30, on dex, remdesivir, therapeutic lovenox. SB improving. Plan on 20 days of quarantine. Recommended covid vaccine once he and his are out of quarantine. Will follow, thank you
[2021-02-02] MEDS: Acetaminophen 325 MG Tablet 650 MG PO (19:46)
[2021-02-02] MEDS: MELATONIN 3 MG TABLET PO (23:13)
[2021-02-03] VITALS (7 sets, daily range): BP systolic 113–126; BP diastolic 56–69; PULSE 65–93; RESP 18–28; TEMP 36.7–38.4; O2SAT 90–97
[2021-02-03] MEDS: Acetaminophen 325 MG Tablet 650 MG PO (01:47)
[2021-02-03] MEDS: 0.9% Normal Saline 1,000 ML 150 ML IV (05:06)
[2021-02-03 05:13] LABS: Hematocrit 42.1 % (40-54); Hemoglobin 13.8 g/dL (13.0-16.5); Mean Corp Hgb Conc 32.8 g/dL (32-36); Mean Corpuscular Hgb 28.6 pg (27.0-32.0); Mean Corpuscular Volume 87.3 fL (80-94); Mean Platelet Vol. 11.1 fl (6.2-12.0); Platelet Count 165 K/mm3 (150-450); RBC Distribution Width CV 13.4 % (11.6-14.6); RBC Distribution Width SD 43.1 fl (35.1-43.9); Red Blood Count 4.82 M/mm3 (4.6-6.2); White Blood Count 7.2 K/mm3 (4.4-11.0)
--- NOTE | 2021-02-03 05:41 | PN_ITS ---
Subjective: The patient was seen and examined at the bedside this morning. Events from the last 24 hours have been reviewed. The patient was febrile overnight with a T-max of 102 ?F. He is otherwise hemodynamically stable and maintaining appropriate oxygen saturations on room air. Creatinine has normalized at this time. The patient was able to ambulate in his room this morning and maintain appropriate oxygen saturations on room air. Objective: The patient's most recent lab work, culture data and imaging studies have all been personally reviewed. Rapid coronavirus antigen testing was positive on February 01. General: Alert, Cooperative, No apparent distress HEENT: Atraumatic, Normocephalic Oral: No Gingival or Mucosal Lesions/ Ulcerations Neck: Supple, No Nodes, Trachea Midline Lungs: No rhonchi, No wheeze, No rales Cardiovascular: Regular rate, Regular Rhythm, Normal S1, Normal S2, No murmurs Abdomen: Bowel Sounds Present, Soft, Non Tender Extremities: No clubbing, No cyanosis, No edema Skin: No breakdown Musculoskeletal: No Tenderness to Palpation of Joints or Extremities Lymphatic: No Cervical, Supraclavicular, or Inguinal Adenopathy Neurological: Cranial nerves II-XII grossly intact, Neuro grossly intact Psych/Mental Status: Alert and oriented to time, place, person, mood and affect Vital Signs Temp Pulse Resp BP Pulse Ox 99.5 F H 65 18 113/56 L 95 02/03/21 05:05 02/03/21 05:05 02/03/21 05:05 02/03/21 05:05 02/03/21 05:05 Oxygen Flow Rate (L/min) 2 Oxygen Delivery Method Room Air Weight: 226 lb 10.163 oz Body Mass Index (BMI) 32.5 Intake and Output for Last 24 Hours 02/01/21 02/02/21 02/03/21 23:59 23:59 23:59 Intake Total 1000 / 1000 4815.0 / 4815.0 945 / 945 Output Total 0 / 0 Balance 1000 / 1000 4815.0 / 4815.0 945 / 945 Labs (Last 48 Hours) 02/01/21 02/01/21 02/01/21 21:22 21:22 21:22 WBC 6.3 RBC 6.17 Hgb 17.7 H Hct 54.4 H MCV 88.2 MCH 28.7 MCHC 32.5 RDW Std Deviation 43.5 RDW Coeff of Curtis 13.4 Plt Count 210 MPV 10.9 Immature Gran % (Auto) 0.300 Neut % (Auto) 80.2 H Lymph % (Auto) 11.1 L [place] % (Auto) 7.9 Eos % (Auto) 0.0 Baso % (Auto) 0.5 Absolute Neuts (auto) 5.1 Absolute Lymphs (auto) 0.70 L Nucleated RBC % 0 Diff Path Review PT INR D-Dimer Quant (PE/DVT) 1.71 H* Sodium 133 L Potassium 3.9 Chloride 98 Carbon Dioxide 22.0 Anion Gap 13 BUN 23 H Creatinine 2.16 H Estim Creat Clear Calc 37.55 Est GFR (MDRD) Af Amer 40 L Est GFR (MDRD) Non-Af 33 L BUN/Creatinine Ratio 10.6 Glucose 131 H Calcium 8.9 Total Bilirubin 0.90 AST 52 H ALT 53 Alkaline Phosphatase 83 Total Creatine Kinase Troponin I 0.055 H C-React Prot Ext Range B-Natriuretic Peptide Total Protein 8.8 H Albumin 3.8 Globulin 5.0 H Albumin/Globulin Ratio 0.8 L Procalcitonin 02/01/21 02/01/21 02/01/21 21:22 21:22 21:22 WBC RBC Hgb Hct MCV MCH MCHC RDW Std Deviation RDW Coeff of Curtis Plt Count MPV Immature Gran % (Auto) Neut % (Auto) Lymph % (Auto) [place] % (Auto) Eos % (Auto) Baso % (Auto) Absolute Neuts (auto) Absolute Lymphs (auto) Nucleated RBC % Diff Path Review PT 13.0 INR 1.0 D-Dimer Quant (PE/DVT) Sodium Potassium Chloride Carbon Dioxide Anion Gap BUN Creatinine Estim Creat Clear Calc Est GFR (MDRD) Af Amer Est GFR (MDRD) Non-Af BUN/Creatinine Ratio Glucose Calcium Total Bilirubin AST ALT Alkaline Phosphatase Total Creatine Kinase 200 Troponin I C-React Prot Ext Range 49.30 H B-Natriuretic Peptide Cancelled Total Protein Albumin Globulin Albumin/Globulin Ratio Procalcitonin 02/01/21 02/02/21 02/02/21 22:43 00:33 04:00 WBC 3.6 L RBC 5.50 Hgb 15.5 Hct 48.7 MCV 88.5 MCH 28.2 MCHC 31.8 L RDW Std Deviation 44.1 H RDW Coeff of Curtis 13.4 Plt Count 172 MPV 10.5 Immature Gran % (Auto) 1.700 H Neut % (Auto) 79.0 H Lymph % (Auto) 14.3 L [place] % (Auto) 4.7 Eos % (Auto) 0.0 Baso % (Auto) 0.3 Absolute Neuts (auto) 2.9 Absolute Lymphs (auto) 0.52 L Nucleated RBC % 0 Diff Path Review May foll PT INR D-Dimer Quant (PE/DVT) Sodium Potassium Chloride Carbon Dioxide Anion Gap BUN Creatinine Estim Creat Clear Calc Est GFR (MDRD) Af Amer Est GFR (MDRD) Non-Af BUN/Creatinine Ratio Glucose Calcium Total Bilirubin AST ALT Alkaline Phosphatase Total Creatine Kinase Troponin I 0.074 H C-React Prot Ext Range B-Natriuretic Peptide 67.3 Total Protein Albumin Globulin Albumin/Globulin Ratio Procalcitonin 02/02/21 02/02/21 02/02/21 04:00 04:00 04:00 WBC RBC Hgb Hct MCV MCH MCHC RDW Std Deviation RDW Coeff of Curtis Plt Count MPV Immature Gran % (Auto) Neut % (Auto) Lymph % (Auto) [place] % (Auto) Eos % (Auto) Baso % (Auto) Absolute Neuts (auto) Absolute Lymphs (auto) Nucleated RBC % Diff Path Review PT INR D-Dimer Quant (PE/DVT) Sodium 137 Potassium 4.3 Chloride 106 Carbon Dioxide 20.0 L Anion Gap 11 BUN 23 H Creatinine 1.48 H Estim Creat Clear Calc 54.80 Est GFR (MDRD) Af Amer 62 Est GFR (MDRD) Non-Af 51 L BUN/Creatinine Ratio 15.5 Glucose 137 H Calcium 7.9 L Total Bilirubin AST ALT Alkaline Phosphatase 66 Total Creatine Kinase Troponin I 0.052 H C-React Prot Ext Range B-Natriuretic Peptide Total Protein Albumin Globulin Albumin/Globulin Ratio Procalcitonin 02/02/21 02/03/21 02/03/21 10:00 05:00 05:00 WBC 7.2 RBC 4.82 Hgb 13.8 Hct 42.1 MCV 87.3 MCH 28.6 MCHC 32.8 RDW Std Deviation 43.1 RDW Coeff of Curtis 13.4 Plt Count 165 MPV 11.1 Immature Gran % (Auto) Neut % (Auto) Lymph % (Auto) [place] % (Auto) Eos % (Auto) Baso % (Auto) Absolute Neuts (auto) Absolute Lymphs (auto) Nucleated RBC % Diff Path Review PT INR D-Dimer Quant (PE/DVT) Sodium Pending Potassium Pending Chloride Pending Carbon Dioxide Pending Anion Gap Pending BUN Pending Creatinine Pending Estim Creat Clear Calc Est GFR (MDRD) Af Amer Pending Est GFR (MDRD) Non-Af Pending BUN/Creatinine Ratio Pending Glucose Pending Calcium Pending Total Bilirubin Pending AST Pending ALT Pending Alkaline Phosphatase Pending Total Creatine Kinase Troponin I C-React Prot Ext Range B-Natriuretic Peptide Total Protein Pending Albumin Pending Globulin Albumin/Globulin Ratio Procalcitonin 0.49 H Microbiology 02/01/21 21:14 Mucosa - Nasopharyngeal SARS-CoV-2 Antigen (Rapid) - Final SARS-CoV-2 (COVID 19) Clinical Impression(s) from Imaging Studies Chest X-Ray 02/01/21 21:43 IMPRESSION: No acute radiographic abnormalities. Electronically Signed: Sean Brooks MD at 22:35 EDT Tel , Service support , Medical Necessity - Tobacco Use Smoking Status: Former smoker Assessment/Plan All Active Problems SB (acute kidney injury) (Acute) Pneumonia due to COVID-19 virus (Acute) Elevated d-dimer (Acute) Elevated troponin (Acute) RECOMMENDATIONS: 1. Continue current supportive measures with remdesivir and Decadron. 2. Continue Lovenox as ordered. 3. Stop continuous IV fluids. 4. Low suspicion for PE. Therefore, CTA chest not indicated. 5. Perform walking oximetry prior to consideration for discharge. IMPRESSIONS: 1. Acute hypoxemic respiratory insufficiency secondary to COVID-19 pneumonia The patient presented to the hospital with approximately 4 days of Covid-like symptoms. He does not have a baseline supplemental oxygen requirement. The patient was placed on therapy with Decadron and remdesivir. Liver and renal function remained stable. As of this morning, the patient is maintaining appropriate oxygen saturations on room air. 2. Acute kidney injury Resolved. Likely prerenal in etiology. Creatinine has improved with volume expansion. Okay to discontinue supplemental IV fluids. Continue to monitor urine output. No current indication for renal replacement therapy. 3. Elevated D-dimer The patient does have an elevated D-dimer level but was unable to undergo a CTA chest due to his underlying renal insufficiency. However, the patient's renal function improved with hydration. Nevertheless, the patient is currently maintaining appropriate oxygen saturations on room air and is not tachycardic or tachypneic. Low suspicion for underlying pulmonary embolism. 4. Troponin elevation Likely secondary to demand ischemia in the setting of #1. This note was generated with [facility] dictation software. It may contain incorrect words, spelling, and punctuation that were not noted in checking the note before signing. Inpatient E&M: 11495 Subs Hosp L2
[2021-02-03 05:57] LABS: ALB/GLOB Ratio 0.8 RATIO (0.9-2.4); AST(SGOT) 32 U/L (15-37); Alanine Aminotransfer ALT/SGPT 36 U/L (16-61); Albumin, Serum 2.5 g/dL (3.2-5.0); Alkaline Phosphatase 51 U/L (45-117); Anion Gap 7 (5-15); BUN 20 mg/dL (7-18); BUN/Creat Ratio 16.9 RATIO (10-20); Calcium,Total 7.5 mg/dL (8.5-10.1); Chloride 111 mmol/L (98-107); Creatinine, Serum 1.18 mg/dL (0.70-1.30); EST Glomerular Filtration Rate 67 mL/min (>60); Est Glom Filt Rate - Afr Amer 81 mL/min (>60); Estimated Creatinine Clearance 68.74 ml/min; Globulin 3.3 g/dL (2.2-4.2); Glucose 104 mg/dL (74-106); Potassium 3.6 mmol/L (3.5-5.1); Protein, Total 5.8 g/dL (6.4-8.2); Sodium Level 140 mmol/L (136-145)
[2021-02-03] MEDS: dexAMETHasone 2 MG TABLET 6 MG PO (08:23)
--- NOTE | 2021-02-03 08:36 | DCINST_ITS ---
- Discharge Diagnoses Current Active Problems: Current Active and Chronic Problems SB (acute kidney injury) (Acute) Pneumonia due to COVID-19 virus (Acute) Elevated d-dimer (Acute) Elevated troponin (Acute) History of pulmonary embolism (Chronic) You will use the following diet at home:: No restrictions Your food should be the consistency of: Regular Your liquids should be the consistency of: Regular/Thin Discharge Activity: Return to Normal Activity Weight Bearing Status: Full weight bearing Additional Instructions: Do not take Ibuprofen, aspirin, or Aleve while on Eliquis Tylenol is ok to take for pain If you see any blood in stool, urine, or have any severe nosebleed, stop Eliquis Allergies/Adverse Reactions: Allergies No Known Allergies Allergy (Verified 02/01/21 20:50) Medications to take at Discharge Apixaban [Eliquis] 5 mg PO BID #28 tablet 02/03/21 dexAMETHasone [Dexamethasone] 6 mg PO DAILY #24 tablet 02/03/21 The following prescriptions were given: dexAMETHasone [Dexamethasone] 6 mg PO DAILY #24 tablet Transmission Status: Pending to [facility] Apixaban [Eliquis] 5 mg PO BID #28 tablet Transmission Status: Pending to [facility] Primary Care Physician: Kannan Lane DO [Primary Care Provider] - Please follow up with your Primary Care Physician in: in two weeks Test Results: Test results from this visit will be discussed in further detail at your follow- up appointment, if applicable.
--- NOTE | 2021-02-03 09:55 | CASEMGMT ---
LYNDON LEO reviewed ambulating SPO2 and patient was 90% on room air. Patient does not qualify for home oxygen. Patient is independent in the room. No needs identified at this time.
[2021-02-03 13:16] LABS: Pathologist Review Reviewed
--- NOTE | 2021-02-04 14:50 | CASEMGMT ---
LYNDON LEO Discharge Follow-Up Phone Call. Discharge Date: 02/03/21 Adm Dx: COVID PNA. Attempted discharge f/u phone call. No answer. left for return call for any questions/concerns/needs. Phone number provided. Bear CORREA RN CM
--- NOTE | 2021-02-05 18:20 | PCM.DC.SUM ---
Discharge Date and Diagnosis - Problem List Patient Problems: Active and Suspected Problems SB (acute kidney injury) (Acute) Pneumonia due to COVID-19 virus (Acute) Elevated d-dimer (Acute) Elevated troponin (Acute) Date of Admission: 02/01/21 Date of Discharge: 02/03/21 - Primary Discharge Diagnosis Acute Problems: Active Problems #1 COVID-19 pneumonia #2 hypoxia secondary to COVID-19 pneumoni #3 acute kidney injury #4 elevated [id number] unclear #5 intermediate elevated troponin #6 severe caloric and protein malnutrition - Secondary Discharge Diagnosis Chronic Problems: Chronic Problems History of pulmonary embolism (Chronic) Hospital Course and Treatment Operations: None Procedures: None Summary of Care Provided: The patient is a 60 year old M was seen in the emergency room at [facility] with chief complaint of shortness of breath and generalized fatigue. Work-up in the emergency room included a chest x-ray which showed bilateral patchy infiltrates consistent with Covid, patient's Covid test was positive, patient had elevated D-dimer and an intermediate troponin and also evidence of acute kidney injury. Patient was given Decadron and was found to be hypoxic and acutely tachypneic. He was admitted to ICU for COVID-19 pneumonia and placed on anticoagulation. Patient was seen in consultation by pulmonary medicine and his oxygen saturation was monitored, patient was given remdesivir and dexamethasone. Patient improved over his hospital stay, at the time of discharge, he did not require home oxygen. On 02/03/2021, patient was seen and examined: On examination he appeared in good health and spirits. Vital signs as documented. Skin warm and dry and without overt rashes. Neck without JVD, neck was supple, trachea midline, thyroid was normal. Lungs clear bilaterally, normal air movement was noted. Heart exam notable for regular rhythm, normal sounds and absence of murmurs, rubs or gallops. Abdomen unremarkable and without evidence of organomegaly, masses, or abdominal aortic enlargement. Bowel sounds are present, abdomen is not distended. Extremities nonedematous, no cyanosis was noted, no clubbing was noted. Neuro: Cranial nerves II through XII are grossly intact, no focal motor deficits were noted, sensation to light touch and pinprick intact, motor exam 5/5 throughout. Psych: Patient is alert and oriented x3, he does not appear anxious or depressed, he does not appear agitated. Patient was discharged home in stable condition on 02/03/2021. Patient Problems: Active and Suspected Problems SB (acute kidney injury) (Acute) Pneumonia due to COVID-19 virus (Acute) Elevated d-dimer (Acute) Elevated troponin (Acute) - Physical Exam Vitals/I&O's: Vital Signs Temp Pulse Resp BP Pulse Ox 98.1 F 85 28 H 119/59 L 90 02/03/21 08:20 02/03/21 08:20 02/03/21 08:20 02/03/21 08:20 02/03/21 09:05 Oxygen Flow Rate (L/min) 2 Oxygen Delivery Method Room Air Weight: 102.8 kg Body Mass Index (BMI) 32.5 Intake and Output for Last 24 Hours 02/03/21 02/04/21 02/05/21 23:59 23:59 23:59 Intake Total 1260 / 1260 Balance 1260 / 1260 Discharge Activity: Return to Normal Activity Weight Bearing Status: Full weight bearing Home Medications: Medications to take at Discharge Apixaban [Eliquis] 5 mg PO BID #28 tablet 02/03/21 dexAMETHasone [Dexamethasone] 6 mg PO DAILY #24 tablet 02/03/21 Following Prescriptions Were Given to Patient: dexAMETHasone [Dexamethasone] 6 mg PO DAILY #24 tablet Transmission Status: Received by [facility] Apixaban [Eliquis] 5 mg PO BID #28 tablet Transmission Status: Received by [facility] Primary Care Physician: Kannan Lane DO [Primary Care Provider] - Please follow up with your Primary Care Physician in: in two weeks Disposition: Home Minutes spent on discharge:: 31 Patient Condition:: Stable Medical Necessity - Tobacco Use Smoking Status: Former smoker Meaningful Use Info Meaningful Use Diagnoses (Choose all that apply): None applicable Inpatient E&M: 50467 Disch Hosp
== END 2021-02-03 10:30 | disposition home or self-care (01) | DRG 177 ==
LOC: ED 21:37 → ICU 02-02 01:25
PROVIDERS: Internal Medicine Critical Care Medicine; Nurse Practitioner Family; Admitting Provider Family Medicine; Emergency Provider Emergency Medicine; PCP Family Medicine; Visit Provider Internal Medicine
DX: U07.1 COVID-19 (principal); J12.82 Pneumonia due to coronavirus disease 2019; E43 Unspecified severe protein-calorie malnutrition; N17.9 Acute kidney failure, unspecified; I24.8 Other forms of acute ischemic heart disease; R09.02 Hypoxemia; E86.0 Dehydration; Z68.32 Body mass index [BMI] 32.0-32.9, adult; Z79.01 Long term (current) use of anticoagulants; Z86.711 Personal history of pulmonary embolism; Z86.718 Personal history of other venous thrombosis and embolism; Z87.891 Personal history of nicotine dependence
CPT/HCPCS: 71045; 80048; 80053; 82550; 83880; 84075; 84145; 84484; 85025; 85027; 85379; 85610; 86140; 87426; 93005; 97802; 99251; 99285; J7030; J7050; A4216; G0463